=== PATIENT | female | born 1990 | race Caucasian/White ===

== ENCOUNTER → 2017-01-12 | Outpatient (CLI) | payer BC ==
[~2017-01-12] MED LIST: AUGMENTIN 875 M1 TAB PO; FLEXERIL5 MG PO; NAPROSYN500 MG PO; NKHM; TRAMADOL HCL50 MG PO; VOLTAREN50 M1 PO
== END | disposition home or self-care (01) ==
LOC: US 01-11 13:30
DX: R10.2 Pelvic and perineal pain (principal); R10.9 Unspecified abdominal pain